=== PATIENT | male | born 1985 | race Caucasian/White ===

== ENCOUNTER 2023-12-25 07:35 | Emergency (ER) | payer OTHER, SELFPAY ==
[2023-12-25 07:45] VITALS: PULSE 86; O2SAT 99
[2023-12-25 07:51] VITALS: BP 129/85; PULSE 75; RESP 16; TEMP 36.7; O2SAT 99; BMI 25.2
--- NOTE | 2023-12-25 07:55 | ED_ITS ---
HPI - Allergic Reaction General Chief complaint: Allergic Reaction Stated complaint: stung by bee, allergic reaction Time Seen by Provider: 12/25/23 07:39 Source: patient Mode of arrival: Ambulatory Limitations: no limitations History of Present Illness HPI narrative: Patient is a 37-year-old otherwise healthy male who last evening sustained a bee sting to his left lower lip. He stated that his lip is remained swollen since that event. Last evening he also had a systemic urticaria rash. No vomiting. No fevers. He took 2 Benadryl last evening. The rashes now completely resolved. He comes today because of the continued swelling of his lip. Once again he has no problems breathing or swallowing. Has never had a reaction like this in the past to bee sting Review of Systems ENT Ears, Nose, Mouth, and Throat: Reports system reviewed and no additional complaints, except as documented Cardiovascular Cardiovascular: Reports system reviewed and no additional complaints, except as documented Respiratory Respiratory: Reports system reviewed and no additional complaints, except as documented Integumentary/Breasts Skin/Breast: Reports system reviewed and no additional complaints, except as documented Allergic/Immunologic Allergic/Immunologic: Reports system reviewed and no additional complaints, except as documented Exam [facility] Face and sinus: normal facial exam Mouth: oral mucosae normal, tongue normal, moist mucous membranes and lip abnormal (Mild swelling left side lower lip) Throat: posterior oropharynx abnormal Resp Effort & Inspection: normal respiratory effort Auscultation: clear to auscultation bilaterally Skin General: no rashes or lesions noted Neuro General: patient alert, patient awake, patient oriented x3 and moves all extremities Extrem General: normal to inspection and capillary refill normal Course Orders Ordered: Discontinued Medications Dexamethasone (Dexamethasone 4 Mg Tablet) 12 mg PO NOW ONE Stop: 12/25/23 07:57 MDM - Allergic Reaction MDM Narrative Medical decision making narrative: Patient does not meet criteria for anaphylaxis. No respiratory issues. No vomiting. No skin changes. Patient was given 1 dose of steroids here in the ER. We discussed the use of Benadryl as needed. He was given return precautions. He expressed understanding and agreement with the plan. 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 For the next 24-48 hours you can take 1 tablet (25 mg) of [id number] Benadryl/diphenhydramine every 4 hours as needed for a rash. I recommend that if your symptoms worsen to include problems breathing, problems swallowing or return of the hives that you return to the emergency department for further evaluation. Stand Alone Forms: Patient Portal/API
[2023-12-25 08:00] VITALS: BP 105/68; PULSE 76; RESP 12; O2SAT 97
[2023-12-25] MEDS: dexAMETHasone 4 MG TABLET 12 MG PO (08:08)
== END 2023-12-25 08:14 | disposition home or self-care (01) ==
PROVIDERS: Emergency Provider Emergency Medicine
DX: T63.441A Toxic effect of venom of bees, accidental (unintentional), initial encounter (principal)
CPT/HCPCS: 99283